=== PATIENT | male | born 1990 | race Caucasian/White ===

== ENCOUNTER 2020-05-09 17:00 | Outpatient (REF) | payer BC, SELFPAY | END 2020-05-09 17:01 | disposition home or self-care (01) | LOC: HO.LAB 17:00 | PROVIDERS: Visit Provider Internal Medicine | DX: Z20.828 Contact with and (suspected) exposure to other viral communicable diseases (principal) | CPT/HCPCS: C9803; U0003 ==

== ENCOUNTER 2020-06-25 13:32 | Outpatient (REF) | payer BC, SELFPAY | END 2020-06-25 13:33 | disposition home or self-care (01) | LOC: HO.LAB 13:32 | PROVIDERS: Visit Provider Internal Medicine | DX: Z20.828 Contact with and (suspected) exposure to other viral communicable diseases (principal) | CPT/HCPCS: 36415; C9803; U0003 ==

== ENCOUNTER 2020-09-12 13:58 | Outpatient (REF) | payer BC, SELFPAY | END 2020-09-12 13:59 | disposition home or self-care (01) | LOC: HO.LAB 13:58 | PROVIDERS: Visit Provider Internal Medicine | DX: Z20.822 Contact with and (suspected) exposure to COVID-19 (principal) | CPT/HCPCS: 36415; C9803; U0003; U0005 ==